=== PATIENT | female | born 1990 | race Caucasian/White ===

== ENCOUNTER 2021-03-28 05:41 | Inpatient (IN) | payer OTHER ==
[~2021-03-28] VITALS: Ht 167.6 cm; Wt 97.7 kg
[2021-03-28 05:58] VITALS: BP 121/87
[2021-03-28] MEDS ORDERED: FENTANYL PF 100 MCG/2ML IV PRN (06:00)
[2021-03-28] MEDS ORDERED: OXYTOCIN 30U/ 0.9% NaCL 500ML 500 ML IV PRN (06:00)
[2021-03-28] MEDS ORDERED: OXYTOCIN 30U/ 0.9% NaCL 500ML 500 ML IV ONE (06:00)
[2021-03-28] MEDS ORDERED: ONDANSETRON 2MG/ML, 2ML IVPush PRN (06:00)
[2021-03-28] MEDS ORDERED: TERBUTALINE 1 MG/ML, 1ML SQ PRN (06:00)
[2021-03-28] MEDS ORDERED: TERBUTALINE 1 MG/ML, 1ML IVPush PRN (06:00)
[2021-03-28] MEDS ORDERED: FENTANYL PF 100 MCG/2ML IVPush PRN (06:00)
[2021-03-28] MEDS ORDERED: D5%-LACTATED RINGERS 1,000 ML IV SCH (06:00)
[2021-03-28] MEDS ORDERED: METF500T27 PO (06:05)
[2021-03-28] MEDS ORDERED: PREN1TAB62 PO (06:05)
[2021-03-28] MEDS ORDERED: ASPI-963 PO (06:05)
[2021-03-28] MEDS: LACTATED RINGERS 1,000 ML IV SCH ×2 (06:23→09:30)
[2021-03-28 06:33] LABS: BASOPHILS % (AUTO) 1 % (0-1); EOSINOPHILS % (AUTO) 1 % (1-7); LYMPHOCYTES % (AUTO) 30 % (22-44); MEAN CORPUSCULAR HEMOGLOBIN 27.9 pg (27.0-34.8); MEAN CORPUSCULAR HGB CONC 33.6 g/dL (32.4-35.8); MEAN PLATELET VOLUME 7.2 fL (7.4-10.4); MONOCYTES % (AUTO) 5 % (2-9); NEUTROPHILS % (AUTO) 63 % (42-75); PLATELET COUNT 401 x10^3/uL (130-400); RED BLOOD COUNT 4.15 x10^6/uL (3.82-5.3); RED CELL DISTRIBUTION WIDTH 15.2 % (9.6-15.2)
[2021-03-28 06:35] LABS: MD NO
[2021-03-28] MEDS ORDERED: LIDOCAINE 1%, 20ML ONE (06:42)
[2021-03-28] MEDS ORDERED: NEWBORN KIT ONE (06:42)
[2021-03-28] MEDS ORDERED: MISOPROSTOL 200 MCG TABLET ONE (06:42)
[2021-03-28 07:40] LABS: ALANINE AMINOTRANSFERASE 21 U/L (12-78); ALBUMIN 2.4 g/dL (3.4-5.0); ANION GAP 9 mmol/L (5-15); CALCIUM 8.7 mg/dL (8.5-10.1); CHLORIDE 106 mmol/L (98-107); CREATININE 0.67 mg/dL (0.55-1.02)
[2021-03-28 07:43] LABS: MICROSCOPIC INDICATED
[2021-03-28 07:43] LABS: ALKALINE PHOSPHATASE 141 U/L (45-117); BILIRUBIN,TOTAL 0.2 mg/dL (0.2-1.0)
[2021-03-28 07:44] LABS: BILIRUBIN, DIRECT < 0.1 mg/dL (0.1-0.2)
[2021-03-28 07:48] LABS: CREATININE,URINE RANDOM 93.3 mg/dL
[2021-03-28] MEDS ORDERED: BUPIVACAINE 0.25% ONE (08:50)
[2021-03-28] MEDS ORDERED: FENTANYL/BUPIV./NS/PF 250 ML EPIDCONT ONE (08:50)
[2021-03-28] MEDS ORDERED: FENTANYL/BUPIV./NS/PF 250 ML EPIDCONT SCH (09:30)
[2021-03-28] MEDS ORDERED: EPHEDRINE 50 MG/ML, 1ML IVPush PRN (09:30)
[2021-03-28] MEDS ORDERED: LACTATED RINGERS 1,000 ML IV SCH (09:30)
[2021-03-28] MEDS ORDERED: LACTATED RINGERS 1,000 ML IVBOLUS PRN (09:30)
[2021-03-28] MEDS ORDERED: ONDANSETRON 2MG/ML, 2ML IV PRN (15:00)
[2021-03-28] MEDS ORDERED: CALCIUM CARBONATE 500 MG TAB.CHEW PO PRN (15:00)
[2021-03-28] MEDS ORDERED: ACETAMINOPHEN 325 MG TABLET PO PRN ×2 (15:00)
[2021-03-28] MEDS ORDERED: OXYTOCIN 30U/ 0.9% NaCL 500ML 500 ML IV SCH (15:00)
[2021-03-28] MEDS ORDERED: SIMETHICONE 80 MG CHEW TAB PO PRN (15:00)
[2021-03-28] MEDS ORDERED: DOCUSATE 100 MG CAPSULE PO PRN (15:00)
[2021-03-28] MEDS ORDERED: RHOGAM FROM BLOOD BANK 1 NOTE EA IM/IV ONE (15:00)
[2021-03-28] MEDS ORDERED: MAGNESIUM HYDROXIDE 8%, 30ML UDC PO PRN (15:00)
[2021-03-28] MEDS ORDERED: MISOPROSTOL 200 MCG TABLET PR PRN (15:00)
[2021-03-28] MEDS ORDERED: DIPH,PERTUSS(ACELL),TET VAC/PF NC IM-VACC PRN (15:00)
[2021-03-28] MEDS ORDERED: OXYcodone/APAP 5/325MG TABLET PO PRN (15:00)
[2021-03-28] MEDS: IBUPROFEN 600 MG TABLET PO PRN ×2 (15:22→22:21)
[2021-03-28 18:15] VITALS: BP 110/73
[2021-03-28] MEDS: OXYcodone/APAP 5/325MG TABLET PO PRN ×2 (18:27→22:21)
[2021-03-28 22:44] LABS: BASOPHILS % (AUTO) 1 % (0-1); EOSINOPHILS % (AUTO) 1 % (1-7); LYMPHOCYTES % (AUTO) 26 % (22-44); MEAN CORPUSCULAR HEMOGLOBIN 27.3 pg (27.0-34.8); MEAN CORPUSCULAR HGB CONC 32.7 g/dL (32.4-35.8); MEAN PLATELET VOLUME 7.1 fL (7.4-10.4); MONOCYTES % (AUTO) 6 % (2-9); NEUTROPHILS % (AUTO) 66 % (42-75); PLATELET COUNT 340 x10^3/uL (130-400); RED BLOOD COUNT 4.01 x10^6/uL (3.82-5.3); RED CELL DISTRIBUTION WIDTH 15.3 % (9.6-15.2)
[2021-03-28 22:45] LABS: MD NO
[2021-03-29] VITALS: BP 106/74
[2021-03-29] MEDS: OXYcodone/APAP 5/325MG TABLET PO PRN (02:44)
[2021-03-29] MEDS: IBUPROFEN 600 MG TABLET PO PRN ×3 (04:43→16:10)
[2021-03-29 04:50] VITALS: BP 120/77
[2021-03-29 07:55] VITALS: BP 107/75
[2021-03-29] MEDS ORDERED: PRENATAL VIT/IRON/FA 1 EACH TABLET PO SCH (09:00)
[2021-03-29] MEDS ORDERED: IBUP-1222 PO (10:26)
[2021-03-29 13:30] VITALS: BP 111/73
== END 2021-03-29 16:00 | disposition home or self-care (01) | DRG 807 ==
LOC: LDIP 05:41 → 2NW 18:09
PROVIDERS: ADMIT Obstetrics & Gynecology; ATTEND Obstetrics & Gynecology
PROC: 10E0XZZ Delivery of Products of Conception, External Approach (ICD-10-PCS; principal; 2021-03-28)
PROC: 0KQM0ZZ Repair Perineum Muscle, Open Approach (ICD-10-PCS; 2021-03-28)
PROC: 3E0R3BZ Introduction of Anesthetic Agent into Spinal Canal, Percutaneous Approach (ICD-10-PCS; 2021-03-28)
PROC: 00HU33Z Insertion of Infusion Device into Spinal Canal, Percutaneous Approach (ICD-10-PCS; 2021-03-28)
DX: O13.4 Gestational [pregnancy-induced] hypertension without significant proteinuria, complicating childbirth (principal); Z37.0 Single live birth; Z3A.37 37 weeks gestation of pregnancy; E28.2 Polycystic ovarian syndrome; O70.1 Second degree perineal laceration during delivery; Z88.0 Allergy status to penicillin; Z88.8 Allergy status to other drugs, medicaments and biological substances
CPT/HCPCS: 36415; 80053; 81001; 82248; 82570; 84156; 84550; 85025; 86592; 86850; 86900; G0378; J2590; J7120

== ENCOUNTER 2021-04-02 14:13 | Emergency (ER) | payer OTHER ==
[~2021-04-02] VITALS: Ht 167.6 cm; Wt 96.4 kg
[~2021-04-02 14:13] MED LIST: ASPI-963 PO; IBUP-1222 PO; METF500T27 PO; PREN1TAB62 PO
--- NOTE | 2021-04-02 14:33 | NUR ---
given ua cup. as
--- NOTE | 2021-04-02 14:46 | NUR ---
URINE COLLECTED/SENT TO LAB.
[2021-04-02 14:54] LABS: MICROSCOPIC AUTO
--- NOTE | 2021-04-02 17:51 | NUR ---
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
--- NOTE | 2021-04-02 18:39 | NUR ---
PT HAS CO HTN AND BUNCH S/P 5 DAYS OF CHILD . NORMAL CHILD . L&D/OB REQUESTING PT TO BE SENT TO L&D FLOOR.
--- NOTE | 2021-04-02 18:50 | NUR ---
REPORT TO SUSHANT
[2021-04-02 19:06] VITALS: BP 131/88
--- NOTE | 2021-04-02 19:07 | NUR ---
PER DR.VAN JONES. PT IS DC FROM ED. TO GO UPSTAIRS FOR OBGYN EVAL. PT RESTING ON [employer] W/ CALL LIGHT IN REACH AND SIDE RAILS UPX2. RESP EVEN AND UNLABORED, WENDY.
--- NOTE | 2021-04-02 19:16 | NUR ---
TELEPHONE CALL TO L&D TO VERIFY READY FOR PT. 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 RESP EVEN AND UNLABORED,
== END 2021-04-02 19:21 | disposition home or self-care (01) ==
LOC: ED 17:06
DX: I10 Essential (primary) hypertension (principal); R51.9 Headache, unspecified
CPT/HCPCS: 81001; 99283

== ENCOUNTER 2021-04-02 19:14 | Outpatient (CLI) | payer OTHER ==
[~2021-04-02] VITALS: Ht 167.6 cm; Wt 93.0 kg
[2021-04-02 19:40] VITALS: BP 133/72
[2021-04-02 19:48] LABS: BASOPHILS % (AUTO) 1 % (0-1); EOSINOPHILS % (AUTO) 1 % (1-7); LYMPHOCYTES % (AUTO) 32 % (22-44); MEAN CORPUSCULAR HEMOGLOBIN 27.7 pg (27.0-34.8); MEAN PLATELET VOLUME 6.7 fL (7.4-10.4); MONOCYTES % (AUTO) 5 % (2-9); NEUTROPHILS % (AUTO) 62 % (42-75); PLATELET COUNT 472 x10^3/uL (130-400); RED BLOOD COUNT 4.07 x10^6/uL (3.82-5.3); RED CELL DISTRIBUTION WIDTH 15.7 % (9.6-15.2)
[2021-04-02 19:49] LABS: MD NO
[2021-04-02 19:56] LABS: ALBUMIN 2.5 g/dL (3.4-5.0); ANION GAP 8 mmol/L (5-15); CALCIUM 8.6 mg/dL (8.5-10.1); CHLORIDE 110 mmol/L (98-107)
[2021-04-02 20:00] LABS: ALANINE AMINOTRANSFERASE 55 U/L (12-78); ALKALINE PHOSPHATASE 109 U/L (45-117); BILIRUBIN,TOTAL 0.2 mg/dL (0.2-1.0); CREATININE 0.71 mg/dL (0.55-1.02); TOTAL PROTEIN 7.1 g/dL (6.4-8.2)
[2021-04-02 20:11] LABS: CREATININE,URINE RANDOM 72.5 mg/dL
== END 2021-04-02 20:53 | disposition home or self-care (01) ==
LOC: LDOP 19:14
PROVIDERS: ATTEND Obstetrics & Gynecology
DX: O16.3 Unspecified maternal hypertension, third trimester (principal); Z3A.37 37 weeks gestation of pregnancy
CPT/HCPCS: 36415; 59025; 80053; 82570; 84156; 84550; 85025; 99211; G0463